=== PATIENT | female | born 1970 | race African-American/Black ===

== ENCOUNTER 2016-07-15 12:54 | Emergency (ER) | payer MEDICAID ==
[~2016-07-15] VITALS: Ht 167.6 cm; Wt 86.0 kg
[2016-07-15 13:10] VITALS: BP 140/89
[2016-07-15 14:10] LABS: CLARITY URINE CLEAR (CLEAR); COLOR URINE YELLOW (YELLOW); GLUCOSE URINE NEGATIVE (NEGATIVE); KETONES URINE NEGATIVE (NEGATIVE); LEUKOCYTE ESTERASE URINE NEGATIVE (NEGATIVE); NITRITE URINE NEGATIVE (NEGATIVE); OCCULT BLOOD URINE NEGATIVE (NEGATIVE); PROTEIN URINE NEGATIVE (NEGATIVE); SPECIFIC GRAVITY URINE 1.025 (1.005-1.030); UROBILINOGEN URINE 0.2 E.U./dL (0.2-1.0)
[2016-07-15 15:03] LABS: BASOPHILS % 0.6 % (0.0-2.0); HEMOGLOBIN. 11.5 g/dL (12.0-16.0); LYMPHOCYTES % 44.8 % (20.0-50.0); MEAN CORPUSCULAR HGB CONC 31.8 g/dL (31.0-37.0); MEAN CORPUSCULAR VOLUME 84.9 fL (81.0-99.0); MEAN PLATELET VOLUME 9.5 fl (7.4-10.4); MONOCYTES % 4.4 % (2.0-8.0); NEUTROPHILS % 49.2 % (40.0-76.0); PLATELET 273 x1000/uL (130-400); RED BLOOD CELL COUNT 4.24 mill/uL (4.2-5.4); RED CELL DISTRIBUTION WIDTH 14.4 % (11.6-14.6); WHITE BLOOD COUNT 7.2 x1000/uL (4.5-11.0)
[2016-07-15 15:08] LABS: PROTHROMBIN TIME 10.4 sec
[2016-07-15 15:11] LABS: ALBUMIN 3.3 g/dL (3.4-5.0); ANION GAP 9; CALCIUM 8.6 mg/dL (8.5-10.1); CARBON DIOXIDE 29 mEq/L (21-32); CHLORIDE 110 mEq/L (98-107); INDEX HEMOLYSI 1 (1-3); INDEX ICTERIC 1 (1-4); INDEX LIPEMIC 1 (1-3); UREA NITROGEN BLOOD 13 mg/dL (7-21)
[2016-07-15 15:15] LABS: ALANINE AMINOTRANSFERASE 16 IU/L (13-61); eGFR > 60 mL/min (>60)
[2016-07-15 15:17] LABS: NT PRO B-TYPE NATRIURETIC PEP 53 pg/mL (5-125); TROPONIN I < 0.02 ng/mL (0.00-0.04)
== END 2016-07-15 16:32 | disposition home or self-care (01) ==
LOC: ER 12:54
DX: M54.41 Lumbago with sciatica, right side (principal); I10 Essential (primary) hypertension; R07.9 Chest pain, unspecified; Z98.51 Tubal ligation status
CPT/HCPCS: 36415; 71010; 80053; 81003; 83880; 84484; 85025; 85610; 93005; 99285

== ENCOUNTER 2018-01-05 20:44 | Emergency (ER) | payer SELFPAY ==
[~2018-01-05] VITALS: Ht 167.6 cm; Wt 114.7 kg
[2018-01-06] MEDS ORDERED: IBUPROFEN 600MG TABLET PO ONE
[2018-01-06 00:03] VITALS: BP 138/82
== END 2018-01-06 00:04 | disposition home or self-care (01) ==
LOC: ER 21:37
DX: H92.01 Otalgia, right ear (principal); I10 Essential (primary) hypertension
CPT/HCPCS: 99283; Z7610

== ENCOUNTER 2018-04-20 15:46 | Emergency (ER) | payer SELFPAY ==
[~2018-04-20] VITALS: Ht 167.6 cm; Wt 91.0 kg
[2018-04-20 16:01] VITALS: BP 164/81
== END 2018-04-20 19:30 | disposition left against medical advice (07) ==
LOC: ER 15:46
DX: R51 Headache (principal); Z53.21 Procedure and treatment not carried out due to patient leaving prior to being seen by health care provider

== ENCOUNTER 2018-04-24 09:42 | Emergency (ER) | payer SELFPAY ==
[~2018-04-24] VITALS: Ht 167.6 cm; Wt 132.0 kg
[2018-04-24 09:46] VITALS: BP 138/87
[2018-04-24] MEDS ORDERED: LIDOCAINE HCL 1% 20ML VIAL (Pyxis) INJ INFIL ONE (11:45)
[2018-04-24] MEDS ORDERED: CEFTRIAXONE SODIUM 250 MG/VIAL IM ONE (11:45)
[2018-04-24] MEDS ORDERED: AZITHROMYCIN 500 MG TABLET PO ONE (11:45)
[2018-04-24 12:33] LABS: CLARITY URINE CLEAR (CLEAR); COLOR URINE YELLOW (YELLOW); KETONES URINE NEGATIVE (NEGATIVE); LEUKOCYTE ESTERASE URINE NEGATIVE (NEGATIVE); NITRITE URINE NEGATIVE (NEGATIVE); OCCULT BLOOD URINE NEGATIVE (NEGATIVE); PH URINE 6.5 (4.5-8.0); PROTEIN URINE NEGATIVE (NEGATIVE); SPECIFIC GRAVITY URINE 1.019 (1.005-1.030); UROBILINOGEN URINE 0.2 E.U./dL (0.2-1.0)
== END 2018-04-24 12:45 | disposition home or self-care (01) ==
LOC: ER 09:48
DX: Z20.2 Contact with and (suspected) exposure to infections with a predominantly sexual mode of transmission (principal); F41.9 Anxiety disorder, unspecified; E66.01 Morbid (severe) obesity due to excess calories; Z68.42 Body mass index [BMI] 45.0-49.9, adult; Z98.51 Tubal ligation status; Z98.890 Other specified postprocedural states
CPT/HCPCS: 81003; 81025; 96372; 99283; J0696; J3490

== ENCOUNTER 2018-08-21 10:01 | Emergency (ER) | payer SELFPAY ==
[~2018-08-21] VITALS: Ht 167.6 cm; Wt 120.0 kg
[2018-08-21 10:31] VITALS: BP 175/80
[2018-08-21] MEDS ORDERED: ACETAMINOPHEN 325MG TABLET PO STA (11:15)
[2018-08-21 11:24] LABS: CLARITY URINE CLEAR (CLEAR); COLOR URINE YELLOW (YELLOW); KETONES URINE NEGATIVE (NEGATIVE); LEUKOCYTE ESTERASE URINE NEGATIVE (NEGATIVE); NITRITE URINE NEGATIVE (NEGATIVE); OCCULT BLOOD URINE NEGATIVE (NEGATIVE); PH URINE 5.5 (4.5-8.0); PROTEIN URINE NEGATIVE (NEGATIVE); SPECIFIC GRAVITY URINE 1.034 (1.005-1.030); UROBILINOGEN URINE 0.2 E.U./dL (0.2-1.0)
== END 2018-08-21 11:51 | disposition home or self-care (01) ==
LOC: ER 10:01
DX: M54.5 Low back pain (principal); I10 Essential (primary) hypertension; Z98.51 Tubal ligation status
CPT/HCPCS: 81025; 99283

== ENCOUNTER 2018-11-15 15:02 | Emergency (ER) | payer SELFPAY ==
[~2018-11-15] VITALS: Ht 165.1 cm; Wt 90.0 kg
[2018-11-15 15:29] VITALS: BP 145/87
== END 2018-11-15 16:29 | disposition home or self-care (01) ==
LOC: ER 15:32
DX: Z76.0 Encounter for issue of repeat prescription (principal)
CPT/HCPCS: 99283

== ENCOUNTER 2018-12-26 16:39 | Emergency (ER) | payer SELFPAY ==
[~2018-12-26] VITALS: Ht 165.1 cm; Wt 86.0 kg
[2018-12-26] MEDS ORDERED: IBUPROFEN 800MG TABLET PO ONE (18:30)
[2018-12-26] MEDS ORDERED: CLONIDINE 0.1MG TABLET PO ONE (18:30)
[2018-12-26] MEDS ORDERED: METOPROLOL TARTRATE 25MG TABLET PO ONE (19:30)
[2018-12-26 19:46] LABS: BASOPHILS % 0.8 % (0.0-2.0); EOSINOPHILS % 0.6 % (0.0-5.0); HEMATOCRIT. 35.1 % (36.0-48.0); HEMOGLOBIN. 11.4 g/dL (12.0-16.0); LYMPHOCYTES % 34.7 % (20.0-50.0); MEAN CORPUSCULAR VOLUME 83.1 fL (81.0-99.0); MEAN PLATELET VOLUME 9.4 fl (7.4-10.4); MONOCYTES % 3.8 % (2.0-8.0); NEUTROPHILS % 60.1 % (40.0-76.0); PLATELET 241 x1000/uL (130-400); RED BLOOD CELL COUNT 4.23 mill/uL (4.2-5.4); RED CELL DISTRIBUTION WIDTH 15.6 % (11.6-14.6)
[2018-12-26 19:52] LABS: CHLORIDE 108 mEq/L (98-107)
[2018-12-26 20:03] LABS: HCG SCREEN NEGATIVE
[2018-12-26 20:29] VITALS: BP 124/61
== END 2018-12-26 20:30 | disposition home or self-care (01) ==
LOC: ER 16:39
DX: M54.12 Radiculopathy, cervical region (principal); I16.0 Hypertensive urgency; I10 Essential (primary) hypertension; Z98.51 Tubal ligation status
CPT/HCPCS: 36415; 71045; 72040; 80053; 81025; 84484; 84703; 85025; 93005; 99284; Z7610

== ENCOUNTER 2019-03-08 15:18 | Emergency (ER) | payer SELFPAY ==
[~2019-03-08] VITALS: Ht 165.1 cm; Wt 100.0 kg
[2019-03-08 15:44] VITALS: BP 149/86
== END 2019-03-08 16:05 | disposition home or self-care (01) ==
LOC: ER 15:18
DX: I10 Essential (primary) hypertension (principal); Z98.51 Tubal ligation status
CPT/HCPCS: 99283

== ENCOUNTER 2019-10-22 13:09 | Emergency (ER) | payer MEDICAID ==
[~2019-10-22] VITALS: Ht 167.6 cm; Wt 88.0 kg
[2019-10-22] MEDS ORDERED: IBUPROFEN 600MG TABLET PO STA (14:23)
[2019-10-22 14:30] VITALS: BP 191/105
== END 2019-10-22 15:36 | disposition home or self-care (01) ==
LOC: ER 13:09
DX: M25.561 Pain in right knee (principal); I10 Essential (primary) hypertension; Z98.51 Tubal ligation status
CPT/HCPCS: 73562; 99283

== ENCOUNTER 2024-03-19 06:22 | Emergency (ER) | payer MEDICAID ==
[~2024-03-19] VITALS: Ht 170.2 cm; Wt 91.0 kg
[2024-03-19 06:26] VITALS: O2SAT 99
[2024-03-19 06:30] VITALS: TEMP 98.3; O2SAT 97
[2024-03-19] MEDS ORDERED: BENZ100C86 MT (08:15)
[2024-03-19 08:59] VITALS: BP 143/97; PULSE 74; RESP 16
[2024-03-19] MEDS: IBUPROFEN 600MG TABLET PO ONE (08:59)
== END 2024-03-19 10:06 | disposition home or self-care (01) ==
LOC: ER 06:22
DX: B34.9 Viral infection, unspecified (principal); I10 Essential (primary) hypertension; Z20.822 Contact with and (suspected) exposure to COVID-19; Z98.51 Tubal ligation status
CPT/HCPCS: 71045; 87426; 87804; 93005; 99285